=== PATIENT | female | born 1995 | race Caucasian/White ===

== ENCOUNTER → 2019-06-19 08:47 | Outpatient (CLI) | payer OTHER, SELFPAY ==
--- NOTE | 2019-06-19 | PATH_ITS ---
[facility] Accession Number: [id number] . 01 Material submitted: . breast - LEFT BREAST MASS . 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 Negative for atypical hyperplasia, in-situ or invasive carcinoma. Numerous deeper levels examined. [facility] 06/21/2019 1353 Local . 02 Comment: As part of routine quality control inspector, Dr. Solorio has reviewed this case and agrees with the diagnosis above. . 02 Electronically signed: . Zach Love MD, PhD, Pathologist NPI- [id number] . 01 Gross description: . Received one formalin-filled container, labeled with the patient's name and designated left breast mass. The specimen is received with a plastic filter in container, sample loose in container and consists of multiple light yellow-agarwal portions of soft tissue which range in size from 0.2 x 0.1 x 0.1 cm to 1.1 x 0.3 x 0.3 cm. The specimen is entirely submitted in one cassette. Collection date: 06/19/19. Collection time per container: 10:15 a.m. Total fixation time: Approximately 12 hours. ([id number]) /ANNIE 06/20/2019 0219 Local . 02 Pathologist provided ICD-10: N63.20 . 02 CPT . 118396 Performed at: 01 [facility] [address] [facility], [place], [place] [id number] MD Isma Leong MD Phone: [phone] Performed at: [facility] [address] [place], [place] [id number] MD Zoie Hernández MD Phone: [phone]
--- NOTE | 2019-06-19 | DI.US.S_ITS ---
ULTRASOUND GUIDED BIOPSY LEFT BREAST USING VACUUM DEVICE WITH MARKING DEVICE INSERTED AND POST ULTRASOUND IMAGIN06/19/2019 CLINICAL: Left breast mass. PATIENT CONSENT: Risks (minor bleeding, infection, vasovagal reaction and repeat procedure), benefits and alternatives were explained to the patient and written informed consent was obtained. No prior exams were available for correlation. An ultrasound guided biopsy using real-time ultrasound was performed for the 1.3 cm x 1.4 cm x 0.6 cm circumscribed oval mass located in the left breast at 3 o'clock middle depth 4 cm from the nipple. This was described on the previous ultrasound report. The skin was prepped in the usual manner. Local anesthetic was administered to the access site. A skin frances was made in the breast. The abnormality was approached from the lateral aspect. A 10 gauge biopsy needle was placed adjacent to the abnormality under ultrasound guidance. Once the needle was documented to be in the correct location, three specimens were obtained using the Mammotome biopsy system. A clip was inserted into the biopsy cavity. A sterile dressing was applied to the access site. Post procedure ultrasound imaging demonstrates the location device at the targeted area. The specimens were sent to the laboratory for pathological analysis. IMPRESSION: ULTRASOUND GUIDED BIOPSY BENIGN Ultrasound guided biopsy of the 1.3 cm x 1.4 cm x 0.6 cm mass in the left breast at 3 o'clock middle depth 4 cm from the nipple was performed. Pathology indicates benign fibroadenomatoid change. Pathology results are concordant with imaging findings. This exam was interpreted at Station ID: [id number]. Verito vitale,frida/sapna:06/25/2019 14:45:15
== END ==
PROVIDERS: PCP General Practice; Referring Provider Surgery; Visit Provider Surgery
DX: N60.22 Fibroadenosis of left breast (principal)
CPT/HCPCS: 19083